=== PATIENT | female | born 1970 | race Caucasian/White ===

== ENCOUNTER 2018-04-22 21:17 | Emergency (ER) | payer OTHER ==
[~2018-04-22] VITALS: Ht 157.5 cm; Wt 57.6 kg
[2018-04-22 21:30] VITALS: BP 171/97
[2018-04-22] MEDS ORDERED: IBUPROFEN 600 MG TABLET PO ONE ×2 (23:20→23:30)
== END 2018-04-22 23:38 | disposition home or self-care (01) ==
LOC: ER 21:17
DX: N64.4 Mastodynia (principal); I10 Essential (primary) hypertension
CPT/HCPCS: 99282; A4606; Z7610

== ENCOUNTER 2021-09-09 23:57 | Emergency (ER) | payer OTHER ==
[~2021-09-09] VITALS: Ht 147.3 cm; Wt 61.7 kg
--- NOTE | 2021-09-10 00:50 | NUR ---
BIBS C/O L SIDED ABD PAIN THAT RADIATED TO LEFT LOWER BACK X2 DAYS. REPORTS INCREASED PAIN UPON URINATION AND BOWEL MOVEMENTS. DENIES ANY NASUEA, VOMITTING, OR DIARRHEA AND IS BREATHING EVEN AND UNLABORED. PLACED ON MONITOR AND ALL VSS.
[2021-09-10] MEDS ORDERED: ONDANSETRON HCL/PF 4 MG/2 ML VIAL IVP ONE (01:00)
[2021-09-10] MEDS ORDERED: IV NS 0.9% 500 ML BAG IV ONE (01:00)
[2021-09-10] MEDS ORDERED: KETOROLAC TROMETHAMINE INJ 30 MG/ML VIAL IV ONE (01:00)
[2021-09-10] MEDS ORDERED: KETOROLAC TROMETHAMINE INJ 30 MG/ML VIAL ONE (01:04)
[2021-09-10] MEDS ORDERED: ONDANSETRON HCL/PF 4 MG/2 ML VIAL ONE (01:04)
--- NOTE | 2021-09-10 01:09 | NUR ---
taken for ct
[2021-09-10 01:23] LABS: BASOPHILS % (AUTO) 0.3 % (0.0-2.0); EOSINOPHILS % (AUTO) 1.3 % (0.0-6.0); HEMATOCRIT 40 % (33-45); HEMOGLOBIN 13.6 g/dL (11.5-14.8); LYMPHOCYTES % (AUTO) 30.6 % (20.0-44.0); MEAN CORPUSCULAR HGB CONC 34 g/dl (31.0-36.0); MEAN CORPUSCULAR VOLUME 85 fL (82-100); MONOCYTES # (AUTO) 0.5 K/uL (0.1-1.30); NEUTROPHILS # (AUTO) 6.1 K/uL (1.8-8.9); NEUTROPHILS % (AUTO) 62.8 % (43.0-81.0); PLATELET COUNT (AUTO) 299 K/uL (150-450); RED BLOOD CELL COUNT(AUTO) 4.75 MIL/uL (4.0-5.2); WHITE BLOOD COUNT (AUTO) 9.8 K/uL (4.3-11.0)
[2021-09-10 01:38] LABS: BILIRUBIN,URINE NEGATIVE (NEGATIVE); COLOR,URINE YELLOW (YELLOW); LEUKOCYTE ESTERASE ,URINE TRACE (NEGATIVE); NITRITE, URINE NEGATIVE (NEGATIVE); PROTEIN,URINE NEGATIVE (NEGATIVE); UGLUCOSE NEGATIVE (NEGATIVE); UROBILINOGEN,URINE 0.2 EU/dL (0.2)
[2021-09-10 01:38] LABS: ALBUMIN 4.1 g/dL (3.4-5.0); BILIRUBIN,DIRECT 0.1 mg/dL (0.0-0.2); BILIRUBIN,TOTAL 0.2 mg/dL (0.2-1.0); CALCIUM, SERUM 8.9 mg/dL (8.5-10.1); CREATININE 0.7 mg/dL (0.6-1.3); POTASSIUM 3.7 mmol/L (3.5-5.1); TOTAL PROTEIN, SERUM 8.4 g/dL (6.4-8.2)
[2021-09-10 02:09] LABS: BACTERIA,URINE Few /HPF (None Seen); MUCUS,URINE Few /LPF (None Seen); SQUAMOUS EPITHELIAL CELL,UR Moderate /HPF (None Seen)
[2021-09-10] MEDS ORDERED: CIPR500T5 PO (02:14)
[2021-09-10] MEDS ORDERED: METR500T PO (02:14)
[2021-09-10] MEDS ORDERED: CIPROFLOXACIN HCL 500 MG TABLET PO ONE (02:30)
[2021-09-10] MEDS ORDERED: METRONIDAZOLE 500 MG TABLET PO ONE (02:30)
[2021-09-10] MEDS ORDERED: CIPROFLOXACIN HCL 500 MG TABLET ONE (02:32)
[2021-09-10] MEDS ORDERED: METRONIDAZOLE 500 MG TABLET ONE (02:32)
--- NOTE | 2021-09-10 02:39 | NUR ---
IV removed. Catheter intact and site benign. Pressure and 4x4 applied to site. No bleeding noted.Patient discharged to home in stable condition. Written and verbal after care instructions given. Patient verbalizes understanding of instruction.
[2021-09-10 03:58] VITALS: BP 166/104
== END 2021-09-10 02:40 | disposition home or self-care (01) ==
LOC: ER 09-10 00:03
DX: K57.32 Diverticulitis of large intestine without perforation or abscess without bleeding (principal); N39.0 Urinary tract infection, site not specified; R19.7 Diarrhea, unspecified; I10 Essential (primary) hypertension; Z79.899 Other long term (current) drug therapy
CPT/HCPCS: 36415; 74176; 80048; 80076; 81001; 83690; 85025; 96374; 96375; 99284; J1885; J2405; J7040

== ENCOUNTER 2023-11-27 09:07 | Emergency (ER) | payer MEDICAID, OTHER ==
[~2023-11-27] VITALS: Ht 147.3 cm; Wt 63.5 kg
[~2023-11-27 09:07] MED LIST: CIPR500T5 PO; METR500T PO
[2023-11-27] MEDS ORDERED: KETOROLAC TROMETHAMINE INJ 30 MG/ML VIAL ONE (09:38)
[2023-11-27] MEDS: IV NS 0.9% 1,000 ML BAG IV ONE (09:47)
[2023-11-27] MEDS: KETOROLAC TROMETHAMINE 15 MG/ML VIAL IV ONE (09:48)
[2023-11-27 10:02] LABS: BASOPHILS % (AUTO) 0.3 % (0.0-2.0); EOSINOPHILS # (AUTO) 0.1 K/uL (0.0-0.7); EOSINOPHILS % (AUTO) 0.8 % (0.0-6.0); HEMATOCRIT 40 % (33-45); HEMOGLOBIN 13.2 g/dL (11.5-14.8); LYMPHOCYTES # (AUTO) 1.6 K/uL (0.8-4.8); LYMPHOCYTES % (AUTO) 12.9 % (20.0-44.0); MEAN CORPUSCULAR HEMOGLOBIN 28 PG (26.0-33.0); MEAN CORPUSCULAR HGB CONC 33 g/dl (31.0-36.0); MEAN CORPUSCULAR VOLUME 84 fL (82-100); MONOCYTES # (AUTO) 0.5 K/uL (0.1-1.30); MONOCYTES % (AUTO) 3.9 % (2.0-12.0); NEUTROPHILS # (AUTO) 10.4 K/uL (1.8-8.9); NEUTROPHILS % (AUTO) 82.1 % (43.0-81.0); PLATELET COUNT (AUTO) 305 K/uL (150-450); RED BLOOD CELL COUNT(AUTO) 4.74 MIL/uL (4.0-5.2); RED CELL DISTRIBUTION WIDTH 13.3 % (11.5-15.0); WHITE BLOOD COUNT (AUTO) 12.7 K/uL (4.3-11.0)
[2023-11-27 10:35] LABS: ALBUMIN 3.9 g/dL (3.4-5.0); BILIRUBIN,DIRECT 0.1 mg/dL (0.0-0.2); BILIRUBIN,TOTAL 0.5 mg/dL (0.2-1.0); CALCIUM, SERUM 9.4 mg/dL (8.5-10.1); CREATININE 0.6 mg/dL (0.6-1.3); POTASSIUM 3.5 mmol/L (3.5-5.1); TOTAL PROTEIN, SERUM 8.5 g/dL (6.4-8.2)
[2023-11-27 11:02] LABS: APPEARANCE,URINE CLEAR (CLEAR); BILIRUBIN,URINE NEGATIVE (NEGATIVE); BLOOD, URINE 2+ Ery/uL (NEGATIVE); COLOR,URINE YELLOW (YELLOW); KETONES,URINE NEGATIVE (NEGATIVE); LEUKOCYTE ESTERASE ,URINE TRACE (NEGATIVE); NITRITE, URINE NEGATIVE (NEGATIVE); PROTEIN,URINE NEGATIVE (NEGATIVE); UGLUCOSE NEGATIVE (NEGATIVE); UROBILINOGEN,URINE 0.2 EU/dL (0.2)
[2023-11-27 11:05] LABS: ADD URINE CULTURE NO; BACTERIA,URINE Rare /HPF (None Seen); SQUAMOUS EPITHELIAL CELL,UR Few /HPF (None Seen)
[2023-11-27] MEDS ORDERED: HYDR-3980 PO (11:41)
[2023-11-27] MEDS ORDERED: AMOX-430 PO ×2 (11:41→16:03)
[2023-11-27 12:05] VITALS: BP 131/65; TEMP 97.9; O2SAT 95
== END 2023-11-27 12:06 | disposition home or self-care (01) ==
LOC: ER 09:07
DX: K57.32 Diverticulitis of large intestine without perforation or abscess without bleeding (principal); I10 Essential (primary) hypertension; E11.9 Type 2 diabetes mellitus without complications; Z79.899 Other long term (current) drug therapy
CPT/HCPCS: 99285; 74176; 96374; 96361; 85025; 80048; 83690; 80076; 81001; 36415; J1885; J7030

== ENCOUNTER 2025-01-13 19:58 | Emergency (ER) | payer MEDICAID ==
[~2025-01-13] VITALS: Ht 149.9 cm; Wt 60.3 kg
[~2025-01-13 19:58] MED LIST changes: +AMOX-430 PO; +HYDR-3980 PO
[2025-01-13 22:32] VITALS: TEMP 98.5
[2025-01-13] MEDS: IV NS 0.9% 1,000 ML BAG IV ONE (23:00)
[2025-01-13] MEDS ORDERED: ONDANSETRON HCL/PF 4 MG/2 ML VIAL ONE (23:01)
[2025-01-13] MEDS ORDERED: MORPHINE SULFATE INJ 4 MG/ML DISP.SYRIN ONE (23:01)
[2025-01-13] MEDS: MORPHINE SULFATE INJ 2 MG/ML DISP.SYRIN IV ONE (23:03)
[2025-01-13] MEDS: ONDANSETRON HCL/PF 4 MG/2 ML VIAL IVP ONE (23:03)
[2025-01-13 23:09] LABS: BASOPHILS # (AUTO) 0.1 K/uL (0.0-0.2); BASOPHILS % (AUTO) 0.5 % (0.0-2.0); EOSINOPHILS % (AUTO) 0.1 % (0.0-6.0); HEMATOCRIT 38 % (33-45); HEMOGLOBIN 13.2 g/dL (11.5-14.8); LYMPHOCYTES # (AUTO) 2.1 K/uL (0.8-4.8); LYMPHOCYTES % (AUTO) 20.3 % (20.0-44.0); MEAN CORPUSCULAR HEMOGLOBIN 29 PG (26.0-33.0); MEAN CORPUSCULAR HGB CONC 35 g/dl (31.0-36.0); MEAN CORPUSCULAR VOLUME 83 fL (82-100); MONOCYTES # (AUTO) 0.4 K/uL (0.1-1.30); MONOCYTES % (AUTO) 3.8 % (2.0-12.0); NEUTROPHILS # (AUTO) 7.9 K/uL (1.8-8.9); NEUTROPHILS % (AUTO) 75.3 % (43.0-81.0); PLATELET COUNT (AUTO) 225 K/uL (150-450); RED BLOOD CELL COUNT(AUTO) 4.57 MIL/uL (4.0-5.2); RED CELL DISTRIBUTION WIDTH 13.6 % (11.5-15.0); WHITE BLOOD COUNT (AUTO) 10.5 K/uL (4.3-11.0)
[2025-01-13 23:14] LABS: APPEARANCE,URINE CLEAR (CLEAR); BILIRUBIN,URINE NEGATIVE (NEGATIVE); BLOOD, URINE 2+ Ery/uL (NEGATIVE); COLOR,URINE YELLOW (YELLOW); KETONES,URINE TRACE mg/dL (NEGATIVE); LEUKOCYTE ESTERASE ,URINE NEGATIVE (NEGATIVE); NITRITE, URINE NEGATIVE (NEGATIVE); PROTEIN,URINE NEGATIVE (NEGATIVE); UGLUCOSE NEGATIVE (NEGATIVE); UROBILINOGEN,URINE 0.2 EU/dL (0.2)
[2025-01-13 23:16] LABS: CALCIUM, SERUM 9.2 mg/dL (8.5-10.1); CREATININE 0.9 mg/dL (0.6-1.3); POTASSIUM 3.3 mmol/L (3.5-5.1)
[2025-01-13 23:22] LABS: ALBUMIN 3.7 g/dL (3.4-5.0); BILIRUBIN,DIRECT 0.1 mg/dL (0.0-0.2); BILIRUBIN,TOTAL 0.6 mg/dL (0.2-1.0); TOTAL PROTEIN, SERUM 7.7 g/dL (6.4-8.2)
[2025-01-13 23:27] LABS: ADD URINE CULTURE YES; BACTERIA,URINE 1+ /HPF (None Seen); WBC,URINE 0-2 /HPF (0-3)
[2025-01-14] MEDS ORDERED: IBUP-1490 PO (01:41)
[2025-01-14] MEDS ORDERED: AMOX-430 PO (01:41)
[2025-01-14] MEDS ORDERED: AMOX/CLAVULANATE 875 MG TABLET ONE (02:00)
[2025-01-14] MEDS ORDERED: POTASSIUM CHLORIDE 20 MEQ TAB.PRT.SR PO ONE (02:00)
[2025-01-14] MEDS: AMOX/CLAVULANATE 875 MG TABLET PO ONE (02:08)
[2025-01-14] MEDS: POTASSIUM CHLORIDE 20 MEQ TAB.PRT.SR PO ONE (02:08)
[2025-01-14] MEDS ORDERED: ACETAMINOPHEN ES 500 MG TABLET ONE (02:10)
[2025-01-14 04:34] VITALS: BP 126/80; O2SAT 98
== END 2025-01-14 04:34 | disposition home or self-care (01) ==
LOC: ER 20:09
DX: K57.32 Diverticulitis of large intestine without perforation or abscess without bleeding (principal); N39.0 Urinary tract infection, site not specified; E87.6 Hypokalemia; I10 Essential (primary) hypertension
CPT/HCPCS: 99285; 74176; 96374; 96361; 96375; 85025; 80048; 87086; 83690; 80076; 81001; 36415; J2270; J2405; J7030

== ENCOUNTER 2025-03-18 14:16 | Emergency (ER) | payer MEDICAID, OTHER ==
[~2025-03-18] VITALS: Ht 149.9 cm; Wt 62.1 kg
[~2025-03-18 14:16] MED LIST changes: +IBUP-1490 PO
[2025-03-18 14:47] LABS: APPEARANCE,URINE CLEAR (CLEAR); BILIRUBIN,URINE Negative (NEGATIVE); BLOOD, URINE Moderate Ery/uL (NEGATIVE); COLOR,URINE YELLOW (YELLOW); KETONES,URINE Negative (NEGATIVE); LEUKOCYTE ESTERASE ,URINE Negative (NEGATIVE); PH,URINE 5.5 (5.0-8.0); PROTEIN,URINE 30 mg/dl (NEGATIVE); UGLUCOSE Negative (NEGATIVE); UROBILINOGEN,URINE 0.2 EU/dL (0.2)
[2025-03-18 14:48] LABS: NITRITE, URINE NEGATIVE (NEGATIVE)
[2025-03-18 14:52] LABS: BASOPHILS % (AUTO) 0.7 % (0.0-2.0); EOSINOPHILS # (AUTO) 0.1 K/uL (0.0-0.7); HEMATOCRIT 39 % (33-45); HEMOGLOBIN 13.2 g/dL (11.5-14.8); LYMPHOCYTES # (AUTO) 1.8 K/uL (0.8-4.8); LYMPHOCYTES % (AUTO) 27.8 % (20.0-44.0); MEAN CORPUSCULAR HEMOGLOBIN 28 PG (26.0-33.0); MEAN CORPUSCULAR HGB CONC 34 g/dl (31.0-36.0); MEAN CORPUSCULAR VOLUME 83 fL (82-100); MONOCYTES # (AUTO) 0.3 K/uL (0.1-1.30); MONOCYTES % (AUTO) 4.7 % (2.0-12.0); NEUTROPHILS # (AUTO) 4.2 K/uL (1.8-8.9); NEUTROPHILS % (AUTO) 64.8 % (43.0-81.0); PLATELET COUNT (AUTO) 272 K/uL (150-450); RED BLOOD CELL COUNT(AUTO) 4.64 MIL/uL (4.0-5.2); RED CELL DISTRIBUTION WIDTH 13.8 % (11.5-15.0); WHITE BLOOD COUNT (AUTO) 6.4 K/uL (4.3-11.0)
[2025-03-18 15:01] LABS: RBC,URINE 21-50 /HPF (0-2)
[2025-03-18 15:02] LABS: ADD URINE CULTURE NO; BACTERIA,URINE Few /HPF (None Seen); SQUAMOUS EPITHELIAL CELL,UR Many /HPF (None Seen)
[2025-03-18 15:06] LABS: CREATININE 0.7 mg/dL (0.6-1.3); POTASSIUM 3.6 mmol/L (3.5-5.1)
[2025-03-18 15:12] LABS: ALBUMIN 3.8 g/dL (3.4-5.0); BILIRUBIN,DIRECT 0.1 mg/dL (0.0-0.2); BILIRUBIN,TOTAL 0.5 mg/dL (0.2-1.0)
[2025-03-18] MEDS ORDERED: KETOROLAC TROMETHAMINE 15 MG/ML VIAL ONE (15:24)
[2025-03-18] MEDS: KETOROLAC TROMETHAMINE 15 MG/ML VIAL IV ONE (15:27)
[2025-03-18] MEDS ORDERED: IOHEXOL-300 100 ML VIAL IV ONE (17:16)
[2025-03-18] MEDS ORDERED: IV NS 0.9% 250 ML IV ONE (17:16)
[2025-03-18] MEDS ORDERED: MORPHINE SULFATE INJ 4 MG/ML DISP.SYRIN ONE (17:28)
[2025-03-18] MEDS ORDERED: ONDANSETRON HCL/PF 4 MG/2 ML VIAL ONE (17:28)
[2025-03-18] MEDS: ONDANSETRON HCL/PF 4 MG/2 ML VIAL IVP ONE (17:40)
[2025-03-18] MEDS: MORPHINE SULFATE INJ 2 MG/ML DISP.SYRIN IV ONE (17:40)
[2025-03-18] MEDS ORDERED: METO-295 PO (19:12)
[2025-03-18 19:18] VITALS: BP 122/69; TEMP 98.2; O2SAT 98
== END 2025-03-18 19:19 | disposition home or self-care (01) ==
LOC: ER 14:20
DX: R10.31 Right lower quadrant pain (principal); R10.11 Right upper quadrant pain; M25.511 Pain in right shoulder; I10 Essential (primary) hypertension; Z79.899 Other long term (current) drug therapy
CPT/HCPCS: 99285; 74177; 96374; 76705; 96375; 85025; 80048; 83690; 80076; 81001; 36415; J1885; J2270; J2405; J7050; Q9967; 87086-TC